=== PATIENT | female | born 1935 | race Caucasian/White ===

== ENCOUNTER 2021-07-01 18:05 | Emergency (ER) | payer OTHER, SELFPAY ==
[2021-07-01] VITALS (10 sets, daily range): BP systolic 134–169; BP diastolic 66–81; PULSE 59–70; RESP 16–27; TEMP 36.8; O2SAT 95–98; BMI 24.5
[2021-07-01 19:16] LABS: Add Manual Diff / Slide Review NO; Basophils Absolute Auto 0 /uL (0-100); Basophils Percent Auto 0.5 % (0-2); Eosinophils Absolute Auto 100 /uL (0-450); Eosinophils Percent Auto 2.4 % (2-4); Hematocrit 42.2 % (36-46); Hemoglobin 14.3 g/dL (12.0-16.0); Lymphocytes Absolute Auto 2200 /uL (1100-4500); Lymphocytes Percent Auto 36.7 % (25-40); Mean Corpuscular HGB Conc 33.8 % (30-36); Mean Corpuscular Hemoglobin 30.4 PG (26-34); Mean Corpuscular Volume 89.8 fL (80-100); Monocytes Absolute Auto 600 /uL (0-900); Monocytes Percent Auto 9.8 % (3-14); Neutrophils Absolute Auto 3000 /uL (1500-7000); Neutrophils Percent Auto 50.6 % (50-75); Platelet Count 153 X10^3/uL (150-400); Red Cell Distribution Width 15.7 % (11.6-14.8); White Blood Cell Count 5.9 X10^3/uL (4.5-11.0)
[2021-07-01 19:22] LABS: INR 1.8 (0.9-1.3); Prothrombin Time 20.5 SECONDS (10.1-12.7)
[2021-07-01 19:25] LABS: PTT Partial Thromboplastin Tim 42 SECONDS (26.4-36.2)
[2021-07-01 19:28] LABS: Alanine Aminotransferase 21 IU/L (<35); Albumin 4.5 g/dL (3.5-5.0); Albumin Globulin Ratio 1.4 (1.0-2.8); Alkaline Phosphatase 68 U/L (38-126); Aspartate Aminotransferase 35 IU/L (14-36); BUN Creatinine Ratio 19.4 (6-22); Bilirubin Total 0.9 mg/dL (0.2-1.3); Blood Urea Nitrogen 20 mg/dL (7-17); Calcium 8.8 mg/dL (8.4-10.2); Carbon Dioxide 30 mmol/L (22-32); Chloride 101 mmol/L (98-107); Creatine Kinase 189 U/L (30-135); Estimated Glomerular Filt Rate 50.9 mL/min (>60); Globulin 3.3 g/dL (1.7-4.1); Glucose 95 mg/dL (80-110); HEMOLYSIS < 15 (0-50); Lipase 84 U/L (23-300); Potassium 3.9 mmol/L (3.4-5.1); Sodium 137 mmol/L (137-145); Total Protein 7.8 g/dL (6.3-8.2)
--- NOTE | 2021-07-01 19:33 | ED.GENADULT ---
HPI - General Adult General Chief complaint: Abdominal Pain Stated complaint: Possible Diverticiulitis Time Seen by Provider: 07/01/21 19:21 Mode of arrival: Family Vehicle History of Present Illness HPI narrative: 86-year-old woman with a history of atrial fibrillation currently anticoagulated on Coumadin and with a pacemaker in place history of diverticulitis and small bowel obstruction presents with a week of intermittent abdominal pain increasing bloating and increasing gas pain. She notes that her stools have been softer but not overtly diarrhea with increasing gas in them typically number of stools 1st thing in the morning but not persisting throughout the day. She describes increasing tenesmus any time she is trying to have a bowel movement to the point that she actually had an episode of emesis. She describes mucousy discharge with her stools without blood. She also describes a single episode this week of severe reflux that led to a coughing spell and significant acid taste for number of hours. That has not happened previously. She describes no fevers, palpitations, chest pain, dyspnea, orthopnea, lower extremity edema. Related Data Allergies Allergy/AdvReac Type Severity Reaction Status Date / Time ciprofloxacin Allergy Anaphylaxis Verified 07/01/21 18:39 Sulfa (Sulfonamide Allergy Anaphylaxis Verified 07/01/21 18:39 Antibiotics) Review of Systems Review of Systems Narrative: Remainder of complete review of systems is otherwise unremarkable except for that included in the HPI. Patient History Social History Smoking Status: Former smoker Smoking Status: Former smoker alcohol intake frequency: 0-2 drinks per day Alcohol type: wine Substance Use Type: does not use Exam Initial Vital Signs Initial Vital Signs: Vital Signs Temperature 98.3 F 07/01/21 18:29 Pulse Rate 60 07/01/21 18:29 Respiratory Rate 16 07/01/21 18:29 Blood Pressure 134/80 07/01/21 18:29 Pulse Oximetry 98 07/01/21 18:29 General: Healthy appearing, in no acute distress. Able to give a complete and coherent history. Well-nourished well-developed HEENT: Moist mucous membranes, normal sclera with reactive pupils, Neck: No JVD, supple Respiratory: Lungs are clear to auscultation, no wheezing no rales no rhonchi. Full and symmetrical air movement Cardiac: Regular rate and rhythm no murmurs no bruits Abdomen: Soft, mild distention, mild tenderness in the lower quadrants right greater than the left, no rebound or guarding, no flank pain Skin: Warm and dry, no rashes Neurologic: Grossly neurologically intact with no obvious asymmetries or abnormalities Extremities: No trauma, well perfused Psych: Cooperative, appropriate insight and affect Course Orders Ordered: ED Orders 07/01/21 18:40 EKG-12 Lead Stat 07/01/21 18:55 Complete Blood Count AUTO DIFF Stat Comprehensive Metabolic Panel Stat Lipase Stat Partial Thromboplastin Time Stat Prothrombin Time INR Stat Troponin & CK Cardiac Panel Stat 07/01/21 19:36 CT abdomen pelvis w con Stat Discontinued Medications Sodium Chloride (Normal Saline 0.9%) 1,000 mls @ 1,000 mls/hr IV BOLUS ONE Stop: 07/01/21 20:35 Last Admin: 07/01/21 20:33 Dose: 1,000 mls/hr Documented by: PALAK Vital Signs Vital signs: Vital Signs - 8 hr 07/01/21 18:29 07/01/21 19:03 07/01/21 19:05 Temperature 98.3 F Pulse Rate 60 70 60 Respiratory Rate 16 18 20 Blood Pressure 134/80 141/66 H Pulse Oximetry 98 95 96 07/01/21 19:30 07/01/21 19:31 07/01/21 20:07 Temperature Pulse Rate 68 62 59 L Respiratory Rate 18 18 Blood Pressure 169/77 H Pulse Oximetry 97 95 07/01/21 20:24 07/01/21 20:30 07/01/21 21:00 Temperature Pulse Rate 60 67 65 Respiratory Rate 21 27 H 22 Blood Pressure 153/81 H Pulse Oximetry 96 97 98 07/01/21 21:30 Temperature Pulse Rate 62 Respiratory Rate 19 Blood Pressure Pulse Oximetry 98 Medical Decision Making Lab Data Result diagrams: 07/01/21 18:55 07/01/21 18:55 Labs: Lab Results 07/01/21 07/01/21 07/01/21 Range/Units 18:55 18:55 18:55 WBC 5.9 (4.5-11.0) X10^3/uL RBC 4.70 (4.0-5.2) X10^6/uL Hgb 14.3 (12.0-16.0) g/dL Hct 42.2 (36-46) % MCV 89.8 (80-100) fL MCH 30.4 (26-34) PG MCHC 33.8 (30-36) % RDW 15.7 H (11.6-14.8) % Plt Count 153 (150-400) X10^3/uL Neut % (Auto) 50.6 (50-75) % Lymph % (Auto) 36.7 (25-40) % Howell % (Auto) 9.8 (3-14) % Eos % (Auto) 2.4 (2-4) % Baso % (Auto) 0.5 (0-2) % Neut # (Auto) 3000 (7558-4784) /uL Lymph # (Auto) 2200 (3224-3986) /uL Howell # (Auto) 600 (0-900) /uL Eos # (Auto) 100 (0-450) /uL Baso # (Auto) 0 (0-100) /uL PT 20.5 H (10.1-12.7) SECONDS INR 1.8 H (0.9-1.3) APTT 42 H (26.4-36.2) SECONDS Sodium 137 (137-145) mmol/L Potassium 3.9 (3.4-5.1) mmol/L Chloride 101 (98-107) mmol/L Carbon Dioxide 30 (22-32) mmol/L BUN 20 H (7-17) mg/dL Creatinine 1.03 (0.52-1.04) mg/dL Estimated GFR 50.9 L (>60) mL/min BUN/Creatinine Ratio 19.4 (6-22) Glucose 95 (80-110) mg/dL Calcium 8.8 (8.4-10.2) mg/dL Total Bilirubin 0.9 (0.2-1.3) mg/dL AST 35 (14-36) IU/L ALT 21 (<35) IU/L Alkaline Phosphatase 68 (38-126) U/L Total Creatine Kinase 189 H (30-135) U/L CK-MB (CK-2) 0.63 (<2.37) ng/mL CK-MB (CK-2) Rel Index 0.3 L (1.5-5.0) % Troponin I < 0.012 (0.01-0.034) ng/mL Total Protein 7.8 (6.3-8.2) g/dL Albumin 4.5 (3.5-5.0) g/dL Globulin 3.3 (1.7-4.1) g/dL Albumin/Globulin Ratio 1.4 (1.0-2.8) Lipase 84 (23-300) U/L Urine Dip Bedside Urine Glucose Negative Bedside Urine Bilirubin - Negative Bedside Urine Ketone - Negative Urine Specific [place] 1.020 Bedside Urine Occult Blood - Negative Bedside Urine pH 5.5 Bedside Urine Protein - Negative Bedside Urine Urobilinogen - Negative Bedside Urine Nitrite - Negative Bedside Urine Leukocytes - Negative Esterase Point of care testing: Urine Dip Bedside Urine Glucose Negative Bedside Urine Bilirubin - Negative Bedside Urine Ketone - Negative Urine Specific [place] 1.020 Bedside Urine Occult Blood - Negative Bedside Urine pH 5.5 Bedside Urine Protein - Negative Bedside Urine Urobilinogen - Negative Bedside Urine Nitrite - Negative Bedside Urine Leukocytes - Negative Esterase Imaging Data CT scan - abdomen/pelvis: Radiologist's Impression: FINDINGS:? Image quality:? Excellent.? ? Lung bases:? Bibasilar atelectasis. Heart:? Cardiomegaly.? No pericardial effusion. Coronary atherosclerotic vascular calcifications are noted. ? ABDOMEN: Liver: There is diffuse hypoattenuation of the liver parenchyma relative to the spleen compatible with hepatic steatosis. Gallbladder:? Status post cholecystectomy Biliary ducts:? No intrahepatic biliary ductal dilatation.? There is moderate enlargement of the common bile duct to the level of the ampulla measuring up to 1.6 cm in diameter.? No evidence for distal obstructing stone or mass lesion.? No pancreatic ductal dilatation. Pancreas:? Pancreas is symmetric in enhancement.? No focal pancreatic lesions identified. ?No peripancreatic inflammation. Spleen:? Unremarkable.? ? Adrenal Glands:? Unremarkable.? ? Kidneys and Ureters:? No evidence for hydronephrosis or significant perinephric stranding.? No suspicious renal mass lesions.? Left renal hypodensities incompletely characterized but likely represent renal cysts.? Bilateral ureters appear normal in course and caliber.? No evidence for urolithiasis on this contrasted study. ? Stomach and Bowel:? Stomach is decompressed.? There is mild circumferential thickening of the pylorus, slightly more than expected for degree of decompression.? No surrounding inflammatory changes.? There also multiple loops of fluid-filled small bowel in the mid abdomen without surrounding inflammatory changes or evidence for small bowel obstruction. ?Extensive scattered colonic diverticulosis without evidence for acute diverticulitis.? Mild circumferential thickening of the colonic wall of the sigmoid colon. Peritoneum:? No abnormal intraperitoneal fluid.? No free air.? ? Ventral Wall: ? No hernias.? Postsurgical changes involving the lower right abdominal wall. Abdominal Nodes:? No retroperitoneal or mesenteric adenopathy by size criteria.? Vessels:? Scattered atherosclerotic calcifications of the abdominal aorta and iliac vessels without aneurysmal dilatation.? The inferior vena cava appears patent. ? PELVIS: Pelvic Organs:? Unremarkable.? ? Bladder:? Urinary bladder thickness appears normal for degree of distention. No perivesicular inflammatory stranding.? ? Pelvic Nodes: No enlarged lymph nodes.? Miscellaneous: No hernias are seen. ? ? ? Bones:? No acute vertebral body compression fractures. Multilevel spondylitic changes throughout the imaged spine.? No suspicious osseous lesions.? There is grade 1 anterolisthesis of L4 on L5 measuring approximately 7 mm.? There is associated moderate-severe spinal stenosis at this level. ? ? IMPRESSION:? ? 1. Multiple fluid-filled loops of small bowel in the mid abdomen without evidence for transition point or bowel obstruction.? Findings are nonspecific and may represent an inflammatory/infectious enteritis. ? 2. Colonic diverticulosis without acute diverticulitis.? Mild circumferential wall thickening of the sigmoid colon.? Recommend routine colonoscopy to screen for possible underlying neoplastic process. ? 3. Mild thickening of the pylorus, greater than expected for degree of decompression.? This may be normal the patient.? There are no adjacent inflammatory changes.? Recommend clinical correlation. ? 4. Hepatic steatosis ? 5.? Status post cholecystectomy.? Prominent enlargement of the common bile duct measuring up to 1.6 cm in diameter without evidence for distal obstructing stone, mass, or adenopathy.? This is likely related to post cholecystectomy physiologic dilatation.? There is no intrahepatic biliary ductal dilatation.? No pancreatic ductal dilatation. ? 6. Grade 1 anterolisthesis of L4 on L5 with associated moderate-severe spinal canal stenosis at this level. ? 7. Small hiatal hernia. ? 8. Cardiomegaly. ? 9. Atherosclerotic vascular disease.? ? ? Dictated by: Ervin Plasencia M.D. on 07/01/2021 at 20:41? ?? ECG Data Interpretation: Paced rhythm at a rate of 62 Discharge Plan Departure Patient Disposition: Home Clinical Impression: Enteritis Instructions: DI for Viral Gastroenteritis -- Adult Activity Restrictions/Additional Instructions: Thank you for coming in today Your blood work was very reassuring. There is no sign of overwhelming infection or sepsis. No signs of organ failure or electrolyte abnormalities. Your CT scan shows areas of small bowel that are inflamed but not representing a bowel obstruction. The most likely explanation for this given the rest of your symptoms, the history and your blood work all suggest an infectious enteritis which is likely a viral syndrome. The good news is, you are going to get better no matter what we do. I expect symptoms to begin improving over the next couple of days. If you have developing fevers, bloody diarrhea, increasing pain or are unable to pass any stool or flatus you do need to return to the emergency department I have given you copies of your blood work as well as the results of your CT scan to share with your physician in [place]. Referrals: Miscellaneous,[facility] [Primary Care Provider] -
--- NOTE | 2021-07-01 19:36 | DI.CT.S_ITS ---
PROCEDURE: CT ABDOMEN PELVIS W CON INDICATIONS: abdominal pain increasing x1week TECHNIQUE: After the administration of intravenous contrast, axial sections acquired from the lung bases to the pubic symphysis. Coronal and sagittal reformats were performed. For radiation dose reduction, the following was used: automated exposure control, adjustment of mA and/or kV according to patient size. COMPARISON: None. FINDINGS: Image quality: Excellent. Lung bases: Bibasilar atelectasis. Heart: Cardiomegaly. No pericardial effusion. Coronary atherosclerotic vascular calcifications are noted. ABDOMEN: Liver: There is diffuse hypoattenuation of the liver parenchyma relative to the spleen compatible with hepatic steatosis. Gallbladder: Status post cholecystectomy Biliary ducts: No intrahepatic biliary ductal dilatation. There is moderate enlargement of the common bile duct to the level of the ampulla measuring up to 1.6 cm in diameter. No evidence for distal obstructing stone or mass lesion. No pancreatic ductal dilatation. Pancreas: Pancreas is symmetric in enhancement. No focal pancreatic lesions identified. No peripancreatic inflammation. Spleen: Unremarkable. Adrenal Glands: Unremarkable. Kidneys and Ureters: No evidence for hydronephrosis or significant perinephric stranding. No suspicious renal mass lesions. Left renal hypodensities incompletely characterized but likely represent renal cysts. Bilateral ureters appear normal in course and caliber. No evidence for urolithiasis on this contrasted study. Stomach and Bowel: Stomach is decompressed. There is mild circumferential thickening of the pylorus, slightly more than expected for degree of decompression. No surrounding inflammatory changes. There also multiple loops of fluid-filled small bowel in the mid abdomen without surrounding inflammatory changes or evidence for small bowel obstruction. Extensive scattered colonic diverticulosis without evidence for acute diverticulitis. Mild circumferential thickening of the colonic wall of the sigmoid colon. Peritoneum: No abnormal intraperitoneal fluid. No free air. Ventral Wall: No hernias. Postsurgical changes involving the lower right abdominal wall. Abdominal Nodes: No retroperitoneal or mesenteric adenopathy by size criteria. Vessels: Scattered atherosclerotic calcifications of the abdominal aorta and iliac vessels without aneurysmal dilatation. The inferior vena cava appears patent. PELVIS: Pelvic Organs: Unremarkable. Bladder: Urinary bladder thickness appears normal for degree of distention. No perivesicular inflammatory stranding. Pelvic Nodes: No enlarged lymph nodes. Miscellaneous: No hernias are seen. Bones: No acute vertebral body compression fractures. Multilevel spondylitic changes throughout the imaged spine. No suspicious osseous lesions. There is grade 1 anterolisthesis of L4 on L5 measuring approximately 7 mm. There is associated moderate-severe spinal stenosis at this level. IMPRESSION: 1. Multiple fluid-filled loops of small bowel in the mid abdomen without evidence for transition point or bowel obstruction. Findings are nonspecific and may represent an inflammatory/infectious enteritis. 2. Colonic diverticulosis without acute diverticulitis. Mild circumferential wall thickening of the sigmoid colon. Recommend routine colonoscopy to screen for possible underlying neoplastic process. 3. Mild thickening of the pylorus, greater than expected for degree of decompression. This may be normal the patient. There are no adjacent inflammatory changes. Recommend clinical correlation. 4. Hepatic steatosis 5. Status post cholecystectomy. Prominent enlargement of the common bile duct measuring up to 1.6 cm in diameter without evidence for distal obstructing stone, mass, or adenopathy. This is likely related to post cholecystectomy physiologic dilatation. There is no intrahepatic biliary ductal dilatation. No pancreatic ductal dilatation. 6. Grade 1 anterolisthesis of L4 on L5 with associated moderate-severe spinal canal stenosis at this level. 7. Small hiatal hernia. 8. Cardiomegaly. 9. Atherosclerotic vascular disease. Dictated by: Ervin Plasencia M.D. on 07/01/2021 at 20:41 Approved by: Ervin Plasencia M.D. on 07/01/2021 at 20:53
[2021-07-01 19:39] LABS: Troponin I < 0.012 ng/mL (0.01-0.034)
[2021-07-01 19:43] LABS: CKMB % Relative Index 0.3 % (1.5-5.0); Creatine Kinase MB 0.63 ng/mL (<2.37)
[2021-07-01] MEDS: SODIUM CHLORIDE 0.9% 1,000 ML 1000 ML IV (20:33)
== END 2021-07-01 22:33 | disposition home or self-care (01) ==
PROVIDERS: Emergency Provider Emergency Medicine
DX: K52.9 Noninfective gastroenteritis and colitis, unspecified (principal); Z87.891 Personal history of nicotine dependence
CPT/HCPCS: 36415; 74177; 80053; 81003; 82550; 82553; 83690; 84484; 85025; 85610; 85730; 93005; 93010; 96360; 96361; 99284; Q9967